=== PATIENT | female | born 1930 | race Caucasian/White ===

== ENCOUNTER 2016-12-03 14:11 | Inpatient (IN) | payer MEDICARE, BC ==
[~2016-12-03] VITALS: Ht 152.4 cm; Wt 39.1 kg
[~2016-12-03 14:11] MED LIST: AMLO2.5T PO; ASPI1TAB7 PO; CITRTAB8 PO; CRAN475C OR; MULT1TAB PO; TYLE500T PO; VITATAB11 PO; [UNRECOGNIZED DRUG - CODE] PO; [UNRECOGNIZED DRUG - CODE] TOP
[2016-12-03 14:45] VITALS: BP 151/69; PULSE 77; RESP 16; TEMP 98
[2016-12-03] MEDS ORDERED: CENTTAB PO (15:18)
[2016-12-03] MEDS ORDERED: ASPI-147 PO (15:18)
[2016-12-03] MEDS ORDERED: B-COTAB27 PO (15:18)
[2016-12-03] MEDS ORDERED: TUSSLIQ5 PO (15:18)
[2016-12-03] MEDS ORDERED: AMLO2.5T PO (15:18)
--- NOTE | 2016-12-03 15:56 | RADRPT ---
EXAM DATE/TIME: 12/03/2016 15:38 [facility] COMPARISON: No previous studies available for comparison. INDICATIONS : Fall with head trauma. RADIATION DOSE: 37.88 CTDIvol (mGy) MEDICAL HISTORY: Hypertension. SURGICAL HISTORY: None. ENCOUNTER: Initial ACUITY: 1 day PAIN SCALE: 5/10 LOCATION: Cranial TECHNIQUE: Multiple contiguous axial images were obtained of the head. Using automated exposure control and adj ustment of the mA and/or kV according to patient size, radiation dose was kept as low as reasonably a chievable to obtain optimal diagnostic quality images. FINDINGS: Mild diffuse cerebral atrophy is noted. Mild periventricular and subcortical white matter small vess el ischemic changes are noted bilaterally. There is no acute infarct, acute hemorrhage, mass effect or extraaxia l fluid collections. A tiny subgaleal hematoma is noted along the left parietal skull. CONCLUSION: 1. No acute intracranial abnormality. 2. Tiny left parietal subgaleal hematoma. 3. Mild cerebral atrophy. 4. Mild periventricular and subcortical white matter small vessel ischemic changes bilaterally Toney Olivera MD on December 03, 2016 at 15:47 Board Certified Radiologist. This report was verified electronically.
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
[2016-12-03 16:00] VITALS: BP 147/72; PULSE 78; RESP 18; O2SAT 98
--- NOTE | 2016-12-03 16:19 | RADRPT ---
EXAM DATE/TIME: 12/03/2016 15:26 [facility] COMPARISON: No previous studies available for comparison. INDICATIONS : Left hip pain after fall. MEDICAL HISTORY : None. SURGICAL HISTORY : None. ENCOUNTER: Initial ACUITY: 1 day PAIN SCORE: 10/10 LOCATION: Left hip. FINDINGS: Examination of the left hip was performed with AP Pelvis. Left hip is poorly profiled but I do believ e that there is a linear lucency through the proximal femur concerning for a nondisplaced intertrocha nteric fracture. Femoral acetabular articulation is preserved. Well-corticated ossification adjacent to the greater trochanter on the right is characteristic of an accessory ossification or old avulsion injury. There is atherosclerotic calcification of the regional vasculature. CONCLUSION: 1. I suspect a nondisplaced intratrochanteric fracture of the left proximal femur. Due to discomfort, the proximal femur is poorly profiled. 2. Accessory ossification or old well-corticated avulsion injury off the right greater trochanter. 3. Atherosclerotic calcification of the regional vasculature. Reilly Del Real MD on December 03, 2016 at 16:14 Board Certified Radiologist. This report was verified electronically.
--- NOTE | 2016-12-03 16:58 | RADRPT ---
EXAM DATE/TIME: 12/03/2016 16:33 [facility] COMPARISON: HIP LEFT (AP&LAT 2/3VWS) W AP PELVIS, December 03, 2016, 15:26. INDICATIONS : Left hip pain post fall. RADIATION DOSE: 21.56 CTDIvol (mGy) MEDICAL HISTORY : Hypertension. SURGICAL HISTORY : None. ENCOUNTER: Initial ACUITY: 1 day PAIN SCALE: 8/10 LOCATION: Left Hip TECHNIQUE: Volumetric scanning of the hip was performed. Using automated exposure control and adjustment of the mA and/or kV according to patient size, radiation dose was kept as low as reasonably achievable to o btain optimal diagnostic quality images. FINDINGS: BONES: Minimally displaced intertrochanteric fracture of the left hip. Alignment is within normal limits. JOINTS: No evidence of joint narrowing or effusion. SOFT TISSUES: Muscles, tendons and neurovascular structures are grossly unremarkable. No evidence of mass, organize d fluid collection, or foreign body. CONCLUSION: Minimally displaced intertrochanteric fracture of the left hip. Reilly Del Real MD on December 03, 2016 at 16:55 Board Certified Radiologist. This report was verified electronically.
[2016-12-03 17:00] VITALS: BP 141/71; PULSE 76; RESP 18; O2SAT 99
[2016-12-03 18:00] VITALS: BP 126/69; PULSE 82; RESP 16; O2SAT 98
[2016-12-03] MEDS ORDERED: ONDANSETRON HCL 4 MG/2 ML VIAL IVP PRN (18:15)
[2016-12-03] MEDS ORDERED: ACETAMINOPHEN/HYDROcodone 325 MG/5 MG TAB PO PRN ×2 (18:15)
[2016-12-03] MEDS ORDERED: NALOXONE HCL 0.4 MG/ML AMP IV PRN (18:15)
[2016-12-03] MEDS ORDERED: SODIUM CHLORIDE 0.9% FLUSH 5 ML FLUSH IVF PRN (18:15)
[2016-12-03] MEDS ORDERED: diphenhydrAMINE HCL 25 MG CAP PO PRN (18:15)
[2016-12-03] MEDS ORDERED: MAGNESIUM HYDROXIDE SUSP 30 ML CUP PO PRN (18:15)
[2016-12-03] MEDS ORDERED: diphenhydrAMINE HCL 50 MG/ML VIAL IV PRN (18:15)
[2016-12-03] MEDS ORDERED: MORPHINE SULFATE 4 MG/ML INJ IV PUSH PRN (18:15)
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
[2016-12-03] MEDS ORDERED: PILL SPLITTER OTHER PRN (18:45)
[2016-12-03 18:47] LABS: AUTOMATED NEUTROPHIL # 2.7 TH/MM3 (1.8-7.7); EOSINOPHIL % 0.7 % (0.0-4.0); HEMATOCRIT 39.3 % (35.0-46.0); HEMO FLAGS DIFF FINAL; LYMPHOCYTE # 0.5 TH/MM3 (1.0-4.8); MEAN CELL VOLUME 91.5 FL (80.0-100.0); MEAN CORPUSCULAR HEMOGLOBIN 30.3 PG (27.0-34.0); MEAN CORPUSCULAR HGB CONC 33.1 % (32.0-36.0); MONO % 9.3 % (0.0-8.0); PLATELET COUNT 136 TH/MM3 (150-450); RED CELL DISTRIBUTION WIDTH 14.2 % (11.6-17.2); WHITE BLOOD COUNT 3.6 TH/MM3 (4.0-11.0)
[2016-12-03 19:00] LABS: APTT (PATIENT) 23.1 SEC (24.3-30.1); BICARBONATE 32.1 MEQ/L (21.0-32.0); INTERNATIONAL NORMALIZED RATIO 0.9 RATIO; POTASSIUM 4.6 MEQ/L (3.5-5.1); PROTHROMBIN TIME - PATIENT 10.1 SEC (9.8-11.6)
[2016-12-03] MEDS: SODIUM CHLOR 0.9% 1000 ML INJ 1,000 ML IV SCH (19:01)
[2016-12-03 19:19] VITALS: BP 143/78; PULSE 82; RESP 18; O2SAT 98
[2016-12-03] MEDS: SODIUM CHLORIDE 0.9% FLUSH 5 ML FLUSH IVF SCH (21:00)
[2016-12-03] MEDS: DOCUSATE SODIUM 100 MG CAP PO SCH (21:00)
[2016-12-03] MEDS ORDERED: VITAMINS LIPOTROPICS PO SCH (21:00)
[2016-12-03 21:05] VITALS: BP 136/64; PULSE 82; RESP 15; TEMP 97; O2SAT 98
[2016-12-03] MEDS: amLODIPine BESYLATE 5 MG TAB PO SCH (21:28)
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
[2016-12-04 00:30] VITALS: BP 115/56; PULSE 78; RESP 15; TEMP 97; O2SAT 96
[2016-12-04] MEDS ORDERED: SODIUM CHLORID 0.9% 500 ML IV SCH (01:00)
[2016-12-04] MEDS: LACTATED RINGER'S 1000 ML IV SCH (01:00)
[2016-12-04 04:05] VITALS: BP 113/56; PULSE 87; RESP 15; TEMP 96.9; O2SAT 99
--- NOTE | 2016-12-04 06:53 | PD.ORT.PN ---
Subjective Subjective Remarks s/p left hip fx Objective Vitals Vital Signs Date Time Temp Pulse Resp B/P Pulse Ox O2 Delivery O2 Flow Rate FiO2 12/04/16 04:05 96.9 87 15 113/56 99 12/04/16 00:30 97.0 78 15 115/56 96 12/03/16 21:05 97.0 82 15 136/64 98 12/03/16 19:19 82 18 143/78 98 Room Air 12/03/16 18:00 82 16 126/69 98 Room Air 12/03/16 17:00 76 18 141/71 99 Room Air 12/03/16 16:00 78 18 147/72 98 Room Air 12/03/16 14:45 98.0 77 16 151/69 I/O 12/03/16 12/03/16 12/03/16 12/04/16 12/04/16 12/04/16 07:00 15:00 23:00 07:00 15:00 23:00 Intake Total 120 ml Balance 120 ml Intake Oral 120 ml # Voids 1 # Bowel Movements 0 Result Diagram: 12/03/16 1500 12/03/16 1500 Other Results Laboratory Tests Test 12/03/16 15:00 Prothrombin Time 10.1 SEC (9.8-11.6) Prothromb Time International 0.9 RATIO Ratio Imaging Last 24 hours Impressions Hip and Pelvis X-Ray 12/03/161513 Signed Impressions: Service Date/Time: Saturday, December 03, 2016 15:26 - CONCLUSION: 1. I suspect a nondisplaced intratrochanteric fracture of the left proximal femur. Due to discomfort, the proximal femur is poorly profiled. 2. Accessory ossification or old well-corticated avulsion injury off the right greater trochanter. 3. Atherosclerotic calcification of the regional vasculature. Reilly Del Real MD Head CT 12/03/161513 Signed Impressions: Service Date/Time: Saturday, December 03, 2016 15:38 - CONCLUSION: 1. No acute intracranial abnormality. 2. Tiny left parietal subgaleal hematoma. 3. Mild cerebral atrophy. 4. Mild periventricular and subcortical white matter small vessel ischemic changes bilaterally Toney Olivera MD Assessment & Plan Assessment and Plan 1) Left Intertroch fx -surgery today Jim Addison Dec 04, 2016 06:53
[2016-12-04 08:00] VITALS: BP 104/55; PULSE 88; RESP 18; TEMP 98.7; O2SAT 95
[2016-12-04] MEDS ORDERED: ONDANSETRON HCL 4 MG/2 ML VIAL IV PUSH ONE (08:45)
[2016-12-04] MEDS ORDERED: PROPOFOL 200 MG/20 ML AMP IV ONE (08:45)
[2016-12-04] MEDS: SENNOSIDES 8.6 MG TAB PO SCH (09:00)
[2016-12-04] MEDS: DOCUSATE SODIUM 100 MG CAP PO SCH ×2 (09:00→20:54)
[2016-12-04] MEDS: MULTIVITAMIN HEMATINIC THERAPEUTIC TAB PO SCH (09:00)
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
--- NOTE | 2016-12-04 10:13 | EKG ---
Date Performed: 12/03/2016 Time Performed: 18:38:18 PTAGE: 86 years EKG: Sinus rhythm NONSPECIFIC ST & T-WAVE ABNORMALITY BORDERLINE ECG PREVIOUS TRACING : 10/29/2013 19.53 DOCTOR: Luis Bermeo Interpretating Date/Time 12/04/2016 10:11:55
[2016-12-04] MEDS ORDERED: MIDAZOLAM HCL 2 MG/2 ML VIAL ONE (10:21)
[2016-12-04] MEDS ORDERED: FAMOTIDINE 20 MG/2 ML VIAL ONE (10:21)
[2016-12-04] MEDS ORDERED: BUPIVACAINE/EPINEPHRINE 0.25% PF 10 ML VIAL ONE (10:24)
[2016-12-04] MEDS ORDERED: ceFAZolin INJ 1,000 MG VIAL ONE (10:24)
[2016-12-04] MEDS ORDERED: SODIUM CHLOR 0.9% 250 ML INJ 250 ML ONE (10:24)
[2016-12-04] MEDS ORDERED: VANCOMYCIN HCL 1000 MG VIAL ONE (10:24)
[2016-12-04] MEDS ORDERED: GENTAMICIN SULFATE 80 MG/2 ML VIAL ONE (10:25)
--- NOTE | 2016-12-04 11:10 | PD.OP ---
cc: Sandeep Duran MD Operative Report Date of Surgery: Dec 04, 2016 Preoperative Diagnosis: Left hip intertrochanteric fracture Postoperative Diagnosis: Procedure: Left hip reduction and intramedullary nail fixation Anesthesia: Gen. Surgeon: Sandeep Duran Director Of Home Health Services(s): MAHAMED Franco PA-C The surgical procedure was assisted by my physician education administrative assistant. My P.A. presence was necessary throughout this case for the manipulation and positioning of the surgical extremity. My P.A. was assisting me throughout the duration of this procedure. The skill set of a physician education administrative assistant was medically necessary to complete this procedure. During the surgical case the cardiovascular surgical tech was working at the back table and the physician education administrative assistant was directly assisting me. Operation and Findings: Implants used: 11 mm 130 Synthes TFNA short troch nail Plan of activity: Weight-bear as tolerated Patient was seen and evaluated preoperatively. The patient has significant hip pain from intertrochanteric hip fracture. The risk and benefits of surgery were discussed in depth with the patient to include bleeding infection nonunion malunion and need for hip replacement painful hardware as well as medical competitions including but not stroke heart attack and . Informed consent was obtained. Operative site was marked. Patient was brought to the operating room and placed on fracture table. IV sedation was administered by anesthesiologist. Timeout procedure was performed. Hip and leg were prepped with alcohol followed by DuraPrep and draped in the usual sterile fashion. IV antibiotics were given prior to incision. Procedure began with reduction of fracture. Traction was applied. The leg was manipulated to achieve reduction. Excellent reduction was achieved. Fluoroscopy was used to confirm reduction. A three inch incision was made proximal to the trochanter. Subcutaneous tissue was dissected bluntly. Guidepin was placed at the tip of the trochanter and advanced into the femoral canal. Fluoroscopy confirmed appropriate guidepin placement. A opening reamer was placed over the guidepin. The Synthes TFNA nail was attached to the insertion handle. Nail was now placed through the tip of the trochanter into the femoral canal. Fluoroscopy confirmed appropriate nail placement. A second incision was made over the lateral thigh. Cannulas were placed through the insertion handle down to the femur. Guidepin was now placed through the femoral nail into the center of the femoral head. Fluoroscopy confirmed appropriate guidepin placement. Screw length was measured. Cannulated drill was placed over the guidepin. Appropriate length lag screw was now placed. Traction was released and compression was applied. The set screw was now tightened in dynamic mode. Using the insertion handle as a guide a distal interlocking screw was drilled and placed. Final fluoroscopy revealed well aligned fracture with well-placed hardware. Incision was closed with 3-0 Vicryl and jagdish. Sterile dressings were applied. Patient was awakened and transferred to recovery room. Sandeep Duran MD Dec 04, 2016 11:10
[2016-12-04] MEDS ORDERED: SODIUM CHLORIDE 0.9% FLUSH 5 ML FLUSH IVF PRN (11:15)
[2016-12-04] MEDS ORDERED: MORPHINE SULFATE 4 MG/ML INJ IV PUSH PRN (11:15)
[2016-12-04] MEDS ORDERED: diphenhydrAMINE HCL 25 MG CAP PO PRN (11:15)
[2016-12-04] MEDS ORDERED: ERGOCALCIFEROL (VIT D2) 50,000 UNIT CAP PO ONE (13:00)
[2016-12-04] MEDS ORDERED: *morphine SULFATE 8 MG/ML PERIprocedure ONLY ONE (13:02)
[2016-12-04] MEDS ORDERED: DO NOT ADM ANY ANTICOAGULANT DRUGS XX PRN (13:15)
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
[2016-12-04] MEDS: CALCIUM/VITAMIN D 250 MG/125 U TAB PO SCH ×2 (15:32→18:18)
[2016-12-04] MEDS: SODIUM CHLORIDE 0.9% FLUSH 5 ML FLUSH IVF SCH ×3 (15:33→21:00)
[2016-12-04] MEDS: SODIUM CHLOR 0.9% 1000 ML INJ 1,000 ML IV SCH (15:35)
[2016-12-04 16:00] VITALS: BP 118/58; PULSE 83; RESP 16; TEMP 98; O2SAT 100
--- NOTE | 2016-12-04 16:48 | RADRPT ---
EXAM DATE/TIME: 12/04/2016 11:46 [facility] COMPARISON: FLUOROSCOPY PORTABLE UP TO 1HR, December 04, 2016, 0:00. INDICATIONS : ORIF left hip troch nail. MEDICAL HISTORY : None. SURGICAL HISTORY : None. ENCOUNTER: Subsequent ACUITY: 2 days PAIN SCORE: Non-responsive. LOCATION: Left hip. FINDINGS: Intraoperative examination demonstrates placement of an intramedullary almita and dynamic compression sc rew. Patient sipped fracture is well aligned. CONCLUSION: 1. Good alignment of the femoral neck fracture post fixation. Orthopedic hardware is in good position . Gerson Rojo MD on December 04, 2016 at 16:46 Board Certified Radiologist. This report was verified electronically.
[2016-12-04 20:03] VITALS: BP 111/77; PULSE 108; RESP 16; TEMP 96.5; O2SAT 98
[2016-12-04] MEDS: amLODIPine BESYLATE 5 MG TAB PO SCH (20:54)
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
[2016-12-04] MEDS ORDERED: INSULIN HUMAN REGULAR 1,000 UNITS/10 ML VIAL SQ PRN (23:45)
[2016-12-05] VITALS (7 sets, daily range): BP systolic 96–137; BP diastolic 50–59; PULSE 85–100; RESP 16–18; TEMP 96.1–99.5; O2SAT 94–98
[2016-12-05] MEDS: LACTATED RINGER'S 1000 ML IV SCH (01:00)
[2016-12-05 06:18] LABS: MEAN CELL VOLUME 91.2 FL (80.0-100.0); PLATELET COUNT 86 TH/MM3 (150-450); RED BLOOD COUNT 2.85 MIL/MM3 (4.00-5.30); WHITE BLOOD COUNT 5.1 TH/MM3 (4.0-11.0)
[2016-12-05 06:28] LABS: REVIEW FLAG FINAL
[2016-12-05 07:23] LABS: BICARBONATE 30.4 MEQ/L (21.0-32.0); POTASSIUM 3.7 MEQ/L (3.5-5.1)
[2016-12-05] MEDS: DOCUSATE SODIUM 100 MG CAP PO SCH ×2 (09:00→20:26)
[2016-12-05] MEDS: CHOLECALCIFEROL (VIT D3) 5000 UNIT CAP PO SCH (09:00)
[2016-12-05] MEDS: CALCIUM/VITAMIN D 250 MG/125 U TAB PO SCH ×3 (09:00→17:06)
[2016-12-05] MEDS: SODIUM CHLORIDE 0.9% FLUSH 5 ML FLUSH IVF SCH ×4 (09:00→21:00)
[2016-12-05] MEDS: SENNOSIDES 8.6 MG TAB PO SCH (09:00)
[2016-12-05] MEDS: MULTIVITAMIN HEMATINIC THERAPEUTIC TAB PO SCH (09:00)
[2016-12-05] MEDS: SODIUM CHLOR 0.9% 1000 ML INJ 1,000 ML IV SCH ×2 (10:05→20:05)
--- NOTE | 2016-12-05 10:13 | PD.ORT.PN ---
Subjective Subjective Remarks Resting comfortably with no new complaints Objective Vitals Vital Signs Date Time Temp Pulse Resp B/P Pulse Ox O2 Delivery O2 Flow Rate FiO2 12/05/16 09:35 94 21 12/05/16 08:00 99.0 94 18 114/57 98 12/05/16 04:25 99.5 85 16 112/55 97 12/05/16 00:30 98.0 96 16 115/56 96 12/04/16 20:03 96.5 108 16 111/77 98 12/04/16 16:00 98.0 83 16 118/58 100 12/04/16 13:00 98.0 84 14 119/71 99 Nasal Cannula 2 12/04/16 12:45 71 14 132/75 99 Nasal Cannula 2 12/04/16 12:30 78 14 130/73 99 Nasal Cannula 2 12/04/16 12:15 83 14 124/62 99 Nasal Cannula 2 12/04/16 12:10 98.0 85 14 113/54 99 Nasal Cannula 2 I/O 12/04/16 12/04/16 12/04/16 12/05/16 12/05/16 12/05/16 07:00 15:00 23:00 07:00 15:00 23:00 Intake Total 120 ml 400 ml 360 ml 120 ml Output Total 75 ml Balance 120 ml 325 ml 360 ml 120 ml Intake Oral 120 ml 360 ml 120 ml Other 400 ml Output Estimated Blood Loss 75 ml # Voids 1 1 2 2 # Bowel Movements 0 0 0 0 Result Diagram: 12/05/16 0555 12/05/16 0555 Imaging Last 24 hours Impressions Hip and Pelvis X-Ray 12/03/161513 Signed Impressions: Service Date/Time: Saturday, December 03, 2016 15:26 - CONCLUSION: 1. I suspect a nondisplaced intratrochanteric fracture of the left proximal femur. Due to discomfort, the proximal femur is poorly profiled. 2. Accessory ossification or old well-corticated avulsion injury off the right greater trochanter. 3. Atherosclerotic calcification of the regional vasculature. Reilly Del Real MD Head CT 12/03/161513 Signed Impressions: Service Date/Time: Saturday, December 03, 2016 15:38 - CONCLUSION: 1. No acute intracranial abnormality. 2. Tiny left parietal subgaleal hematoma. 3. Mild cerebral atrophy. 4. Mild periventricular and subcortical white matter small vessel ischemic changes bilaterally Toney Olivera MD Objective Remarks Left lower extremity: Clean dry dressings intact. Minimal swelling. Intact sensation distally but no muscular movement due to polio Assessment & Plan Assessment and Plan Left intertrochanteric femur fracture status post intramedullary almita fixation POD 1 Daily dressing changes beginning POD 2 Lovenox Case management for discharge planning to rehabilitation Follow-up appointment with Dr. Duran or PA in 2 weeks incentive spirometry Jose Miguel Henriquez Jr. Dec 05, 2016 10:13
[2016-12-05] MEDS: ACETAMINOPHEN/HYDROcodone 325 MG/5 MG TAB PO PRN (10:29)
[2016-12-05] MEDS: ENOXAPARIN SODIUM 30 MG/0.3 ML SYRINGE SQ SCH (10:29)
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
[2016-12-05] MEDS: amLODIPine BESYLATE 5 MG TAB PO SCH (20:26)
[2016-12-06 00:27] VITALS: BP 107/58; PULSE 93; RESP 16; TEMP 99.3; O2SAT 94
[2016-12-06] MEDS: LACTATED RINGER'S 1000 ML IV SCH ×2 (01:00→20:53)
[2016-12-06] MEDS: ACETAMINOPHEN/HYDROcodone 325 MG/5 MG TAB PO PRN ×2 (02:54→09:55)
[2016-12-06 04:23] VITALS: BP 93/50; PULSE 87; RESP 16; TEMP 96.3; O2SAT 95
[2016-12-06] MEDS: SODIUM CHLOR 0.9% 1000 ML INJ 1,000 ML IV SCH ×3 (06:05→20:54)
[2016-12-06] MEDS ORDERED: NORC5TAB PO (06:38)
[2016-12-06] MEDS ORDERED: XARE10TA PO (06:38)
--- NOTE | 2016-12-06 06:42 | PD.ORT.PN ---
Subjective Subjective Remarks Resting comfortably with no new complaints Objective Vitals Vital Signs Date Time Temp Pulse Resp B/P Pulse Ox O2 Delivery O2 Flow Rate FiO2 12/06/16 04:23 96.3 87 16 93/50 95 12/06/16 00:27 99.3 93 16 107/58 94 12/05/16 20:30 96.6 99 16 137/59 94 12/05/16 16:00 96.1 96 18 100/50 96 12/05/16 12:00 97.7 100 18 96/50 95 12/05/16 09:35 94 21 12/05/16 08:00 99.0 94 18 114/57 98 I/O 12/05/16 12/05/16 12/05/16 12/06/16 12/06/16 12/06/16 07:00 15:00 23:00 07:00 15:00 23:00 Intake Total 600 ml 480 ml 120 ml Balance 600 ml 480 ml 120 ml Intake Oral 600 ml 480 ml 120 ml # Voids 4 1 0 # Bowel Movements 0 0 Result Diagram: 12/05/16 0555 12/05/16 0555 Imaging Last 24 hours Impressions Hip and Pelvis X-Ray 12/03/164 Signed Impressions: Service Date/Time: Saturday, December 03, 2016 15:26 - CONCLUSION: 1. I suspect a nondisplaced intratrochanteric fracture of the left proximal femur. Due to discomfort, the proximal femur is poorly profiled. 2. Accessory ossification or old well-corticated avulsion injury off the right greater trochanter. 3. Atherosclerotic calcification of the regional vasculature. Reilly Del Real MD Head CT 12/03/164 Signed Impressions: Service Date/Time: Saturday, December 03, 2016 15:38 - CONCLUSION: 1. No acute intracranial abnormality. 2. Tiny left parietal subgaleal hematoma. 3. Mild cerebral atrophy. 4. Mild periventricular and subcortical white matter small vessel ischemic changes bilaterally Toney Olivera MD Objective Remarks Left lower extremity: Clean dry dressings intact. Minimal swelling. Intact sensation distally but no muscular movement due to polio Assessment & Plan Assessment and Plan Left intertrochanteric femur fracture status post intramedullary almita fixation POD 2 Daily dressing changes/ every other day if minimal drainage Lovenox Case management for discharge planning to rehabilitation- Ortho cleared Follow-up appointment with Dr. Duran or PA in 2 weeks incentive spirometry Jose Miguel Henriquez Jr. Dec 06, 2016 06:42
[2016-12-06 07:49] VITALS: BP 92/51; PULSE 88; RESP 16; TEMP 97.3; O2SAT 95
[2016-12-06] MEDS: SODIUM CHLORIDE 0.9% FLUSH 5 ML FLUSH IVF SCH ×4 (09:00→20:53)
[2016-12-06] MEDS: CHOLECALCIFEROL (VIT D3) 5000 UNIT CAP PO SCH (09:00)
[2016-12-06] MEDS: SENNOSIDES 8.6 MG TAB PO SCH (09:00)
[2016-12-06] MEDS: CALCIUM/VITAMIN D 250 MG/125 U TAB PO SCH ×2 (09:00→10:35)
[2016-12-06] MEDS: MULTIVITAMIN HEMATINIC THERAPEUTIC TAB PO SCH (09:47)
[2016-12-06] MEDS: DOCUSATE SODIUM 100 MG CAP PO SCH ×2 (09:48→20:53)
[2016-12-06] MEDS: ENOXAPARIN SODIUM 30 MG/0.3 ML SYRINGE SQ SCH (09:53)
[2016-12-06 11:33] LABS: HEMATOCRIT 23.2 % (35.0-46.0); MEAN CORPUSCULAR HEMOGLOBIN 31.2 PG (27.0-34.0); PLATELET COUNT 88 TH/MM3 (150-450); RED BLOOD COUNT 2.52 MIL/MM3 (4.00-5.30); RED CELL DISTRIBUTION WIDTH 13.9 % (11.6-17.2); WHITE BLOOD COUNT 5.9 TH/MM3 (4.0-11.0)
[2016-12-06 11:35] LABS: REVIEW FLAG FINAL
[2016-12-06] MEDS ORDERED: SODIUM CHLOR 0.9% 250 ML INJ 250 ML IV ONE (11:45)
[2016-12-06 12:00] VITALS: BP 99/53; PULSE 91; RESP 18; TEMP 97.3; O2SAT 96
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
[2016-12-06 16:00] VITALS: BP 90/50; PULSE 96; RESP 17; TEMP 98.2; O2SAT 95
[2016-12-06] MEDS: FERROUS SULFATE 325 MG (65 MG ELEMENTAL IRON) TAB PO SCH (16:06)
[2016-12-06 20:45] VITALS: BP 116/62; PULSE 90; RESP 18; TEMP 98.1; O2SAT 96
[2016-12-06] MEDS: amLODIPine BESYLATE 5 MG TAB PO SCH (20:53)
[2016-12-07] VITALS (7 sets, daily range): BP systolic 102–125; BP diastolic 52–66; PULSE 90–97; RESP 16–18; TEMP 96.6–99; O2SAT 94–99
[2016-12-07 05:36] LABS: HEMATOCRIT 22.9 % (35.0-46.0); MEAN CELL VOLUME 91.1 FL (80.0-100.0); MEAN CORPUSCULAR HEMOGLOBIN 31.4 PG (27.0-34.0); MEAN CORPUSCULAR HGB CONC 34.4 % (32.0-36.0); PLATELET COUNT 59 TH/MM3 (150-450); RED BLOOD COUNT 2.52 MIL/MM3 (4.00-5.30); RED CELL DISTRIBUTION WIDTH 13.6 % (11.6-17.2); WHITE BLOOD COUNT 5.4 TH/MM3 (4.0-11.0)
[2016-12-07 05:40] LABS: REVIEW FLAG FINAL
--- NOTE | 2016-12-07 06:46 | PD.ORT.PN ---
Subjective Subjective Remarks Resting comfortably with no new complaints Objective Vitals Vital Signs Date Time Temp Pulse Resp B/P Pulse Ox O2 Delivery O2 Flow Rate FiO2 12/07/16 04:40 99.0 95 17 125/66 96 12/07/16 00:45 97.7 94 16 102/53 95 12/06/16 20:45 98.1 90 18 116/62 96 12/06/16 16:00 98.2 96 17 90/50 95 12/06/16 12:00 97.3 91 18 99/53 96 12/06/16 07:49 97.3 88 16 92/51 95 I/O 12/06/16 12/06/16 12/06/16 12/07/16 12/07/16 12/07/16 06:59 14:59 22:59 06:59 14:59 22:59 Intake Total 120 ml 480 ml 120 ml 120 ml Output Total 300 ml Balance 120 ml 480 ml -180 ml 120 ml Intake Oral 120 ml 480 ml 120 ml 120 ml Output Urine Total 300 ml Bladder Scan Volume Amount 127 ml # Voids 0 0 1 # Bowel Movements 0 0 Result Diagram: 12/07/16 0456 12/05/16 0555 Imaging Last 24 hours Impressions Hip and Pelvis X-Ray 12/03/161513 Signed Impressions: Service Date/Time: Saturday, December 03, 2016 15:26 - CONCLUSION: 1. I suspect a nondisplaced intratrochanteric fracture of the left proximal femur. Due to discomfort, the proximal femur is poorly profiled. 2. Accessory ossification or old well-corticated avulsion injury off the right greater trochanter. 3. Atherosclerotic calcification of the regional vasculature. Reilly Del Real MD Head CT 12/03/161513 Signed Impressions: Service Date/Time: Saturday, December 03, 2016 15:38 - CONCLUSION: 1. No acute intracranial abnormality. 2. Tiny left parietal subgaleal hematoma. 3. Mild cerebral atrophy. 4. Mild periventricular and subcortical white matter small vessel ischemic changes bilaterally Toney Olivera MD Objective Remarks Left lower extremity: Clean dry dressings intact. Minimal swelling. Intact sensation distally but no muscular movement due to polio Assessment & Plan Assessment and Plan Left intertrochanteric femur fracture status post intramedullary almita fixation POD 3 Daily dressing changes/ every other day if minimal drainage Lovenox Case management for discharge planning to rehabilitation- Ortho cleared Follow-up appointment with Dr. Duran or PA in 2 weeks incentive spirometry Jose Miguel Henriquez Jr. Dec 07, 2016 06:45
[2016-12-07] MEDS: CALCIUM/VITAMIN D 250 MG/125 U TAB PO SCH ×2 (09:00→12:05)
[2016-12-07] MEDS: SODIUM CHLORIDE 0.9% FLUSH 5 ML FLUSH IVF SCH ×4 (09:00→21:00)
[2016-12-07] MEDS: CHOLECALCIFEROL (VIT D3) 5000 UNIT CAP PO SCH (09:00)
[2016-12-07] MEDS: MULTIVITAMIN HEMATINIC THERAPEUTIC TAB PO SCH (09:00)
[2016-12-07] MEDS: SENNOSIDES 8.6 MG TAB PO SCH (09:59)
[2016-12-07] MEDS: DOCUSATE SODIUM 100 MG CAP PO SCH ×2 (09:59→21:29)
[2016-12-07] MEDS: ENOXAPARIN SODIUM 30 MG/0.3 ML SYRINGE SQ SCH (10:05)
[2016-12-07] MEDS: SODIUM CHLOR 0.9% 1000 ML INJ 1,000 ML IV SCH ×2 (12:05→21:26)
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
[2016-12-07] MEDS: FERROUS SULFATE 325 MG (65 MG ELEMENTAL IRON) TAB PO SCH ×2 (13:01→16:30)
[2016-12-07] MEDS ORDERED: SENN1TAB2 PO (13:03)
[2016-12-07] MEDS: ACETAMINOPHEN/HYDROcodone 325 MG/5 MG TAB PO PRN (13:37)
[2016-12-07] MEDS: LACTATED RINGER'S 1000 ML IV SCH (21:26)
[2016-12-07] MEDS: amLODIPine BESYLATE 5 MG TAB PO SCH (21:29)
[2016-12-08 00:26] VITALS: BP 101/59; PULSE 95; RESP 16; TEMP 99.1; O2SAT 96
[2016-12-08] MEDS: SODIUM CHLOR 0.9% 1000 ML INJ 1,000 ML IV SCH (04:25)
[2016-12-08 04:35] VITALS: BP 104/60; PULSE 84; RESP 16; TEMP 98.6; O2SAT 96
--- NOTE | 2016-12-08 07:09 | PD.ORT.PN ---
Subjective Subjective Remarks Resting comfortably with no new complaints Objective Vitals Vital Signs Date Time Temp Pulse Resp B/P Pulse Ox O2 Delivery O2 Flow Rate FiO2 12/08/16 04:35 98.6 84 16 104/60 96 12/08/16 00:26 99.1 95 16 101/59 96 12/07/16 20:35 96.6 95 17 105/57 98 12/07/16 16:00 97.1 90 16 103/52 99 12/07/16 12:20 96.9 97 16 117/63 98 12/07/16 11:01 94 21 12/07/16 07:30 98.6 97 18 103/62 97 I/O 12/07/16 12/07/16 12/07/16 12/08/16 12/08/16 12/08/16 07:00 15:00 23:00 07:00 15:00 23:00 Intake Total 120 ml 480 ml 60 ml Balance 120 ml 480 ml 60 ml Intake Oral 120 ml 480 ml 60 ml # Voids 1 3 1 # Bowel Movements 1 0 Result Diagram: 12/07/16 0456 12/05/16 0555 Imaging Last 24 hours Impressions Hip and Pelvis X-Ray 12/03/16 1514 Signed Impressions: Service Date/Time: Saturday, December 03, 2016 15:26 - CONCLUSION: 1. I suspect a nondisplaced intratrochanteric fracture of the left proximal femur. Due to discomfort, the proximal femur is poorly profiled. 2. Accessory ossification or old well-corticated avulsion injury off the right greater trochanter. 3. Atherosclerotic calcification of the regional vasculature. Reilly Del Real MD Head CT 12/03/16 1514 Signed Impressions: Service Date/Time: Saturday, December 03, 2016 15:38 - CONCLUSION: 1. No acute intracranial abnormality. 2. Tiny left parietal subgaleal hematoma. 3. Mild cerebral atrophy. 4. Mild periventricular and subcortical white matter small vessel ischemic changes bilaterally Toney Olivera MD Objective Remarks Left lower extremity: Clean dry dressings intact. Minimal swelling. Intact sensation distally but no muscular movement due to polio Assessment & Plan Assessment and Plan Left intertrochanteric femur fracture status post intramedullary almita fixation POD 4 Daily dressing changes/ every other day if minimal drainage Lovenox Case management for discharge planning to rehabilitation- Ortho cleared Follow-up appointment with Dr. Duran or [facility] in 2 weeks incentive spirometry Jose Miguel Henriquez Jr. Dec 08, 2016 07:09
[2016-12-08 08:00] VITALS: BP 118/60; PULSE 84; RESP 17; TEMP 98.4; O2SAT 96
[2016-12-08] MEDS: DOCUSATE SODIUM 100 MG CAP PO SCH (08:46)
[2016-12-08] MEDS: SENNOSIDES 8.6 MG TAB PO SCH (08:47)
[2016-12-08] MEDS: CALCIUM/VITAMIN D 250 MG/125 U TAB PO SCH ×2 (08:47→12:50)
[2016-12-08] MEDS: MULTIVITAMIN HEMATINIC THERAPEUTIC TAB PO SCH (08:47)
[2016-12-08] MEDS: CHOLECALCIFEROL (VIT D3) 5000 UNIT CAP PO SCH (08:47)
[2016-12-08] MEDS: SODIUM CHLORIDE 0.9% FLUSH 5 ML FLUSH IVF SCH ×2 (08:48)
[2016-12-08] MEDS: ENOXAPARIN SODIUM 30 MG/0.3 ML SYRINGE SQ SCH (08:56)
--- NOTE | 2016-12-08 09:18 | HHI.FF ---
Face to Face Verification Diagnosis: (1) Hip fracture, left (2) Anemia (3) Thrombocytopenia Physical Therapy Order: Evaluate and Treat, Improve ambulation, Strength and gait training Home Health Nursing Order: Medical education Medication education-adverse effect Wound care and dressing changes I have seen patient Ai Jimenez on 12/08/16. My clinical findings support the need for the requested home health care services because: Deconditioned w/ increased weakness High risk of falls I certify that my clinical findings support that this patient is homebound because: Post-op weakness Unsteady gait/balance Clay Ward MD Dec 08, 2016 09:18
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
[2016-12-08 11:39] LABS: HEMATOCRIT 25.9 % (35.0-46.0); MEAN CELL VOLUME 92.1 FL (80.0-100.0); MEAN CORPUSCULAR HEMOGLOBIN 30.5 PG (27.0-34.0); MEAN CORPUSCULAR HGB CONC 33.2 % (32.0-36.0); RED BLOOD COUNT 2.82 MIL/MM3 (4.00-5.30); RED CELL DISTRIBUTION WIDTH 13.9 % (11.6-17.2)
[2016-12-08 12:00] VITALS: BP 104/58; PULSE 98; RESP 18; TEMP 98; O2SAT 98
[2016-12-08 12:37] LABS: REVIEW FLAG FINAL
[2016-12-08 12:38] LABS: PLATELET COUNT 123 TH/MM3 (150-450); WHITE BLOOD COUNT 3.6 TH/MM3 (4.0-11.0)
[2016-12-08] MEDS: FERROUS SULFATE 325 MG (65 MG ELEMENTAL IRON) TAB PO SCH (12:50)
== END 2016-12-08 16:10 | DRG 481 ==
LOC: NEPE 14:11 → NEDA 17:45 → N06B 21:06
PROVIDERS: ADMIT Family Medicine; ATTEND Family Medicine
PROC: 0QS706Z Reposition Left Upper Femur with Intramedullary Internal Fixation Device, Open Approach (ICD-10-PCS; principal; 2016-12-04 10:56)
DX: S72.142A Displaced intertrochanteric fracture of left femur, initial encounter for closed fracture (principal); D62 Acute posthemorrhagic anemia; D69.6 Thrombocytopenia, unspecified; E11.9 Type 2 diabetes mellitus without complications; I10 Essential (primary) hypertension; Z86.12 Personal history of poliomyelitis; V00.831A Fall from motorized mobility scooter, initial encounter; Y92.9 Unspecified place or not applicable; G89.29 Other chronic pain; K59.09 Other constipation; M81.0 Age-related osteoporosis without current pathological fracture; R13.10 Dysphagia, unspecified; S00.03XA Contusion of scalp, initial encounter; Z66 Do not resuscitate; Z77.22 Contact with and (suspected) exposure to environmental tobacco smoke (acute) (chronic); Z79.82 Long term (current) use of aspirin; Z98.41 Cataract extraction status, right eye; Z99.3 Dependence on wheelchair
CPT/HCPCS: 70450; 73502; 73700; 76000; 80048; 82306; 85025; 85027; 85610; 85730; 86850; 86900; 86901; 86920; 93005; C1713; J0690; J1580; J1650; J2250; J2270; J2405; J3010; J3370; J7030; J7050; L1830